=== PATIENT | female | born 1970 ===

== ENCOUNTER 2017-01-01 20:25 | Emergency (ER) | payer OTHER ==
[2017-01-01 20:40] VITALS: BP 121/80; PULSE 69; RESP 18; TEMP 99; O2SAT 100
--- NOTE | 2017-01-01 21:01 | C.PDOC ---
History Of Present Illness 46 year old patient presents to the ED complaining of left knee pain since this afternoon. Patient states she was walking down stairs and missed a step. She twisted her left knee. Her pain is to the medial and posterior aspects of the left knee. Patient reports she is able to ambulate with a limp. Patient denies fall, fever, numbness or weakness. Time Seen by Provider: 01/01/17 20:42 Chief Complaint (Nursing): Lower Extremity Problem/Injury History Per: Patient History/Exam Limitations: no limitations Onset/Duration Of Symptoms: Hrs (this afternoon) Current Symptoms Are (Timing): Still Present Severity: Mild Pain Scale Rating Of: 3 Recent travel outside of the [place]: No - Knee Description Of Injury: Twisted Past Medical History Reviewed: Historical Data, Nursing Documentation, Vital Signs Vital Signs: Last Vital Signs Temp 99.0 F 01/01/17 20:33 Pulse 69 01/01/17 20:33 Resp 18 01/01/17 20:33 BP 121/80 01/01/17 20:33 Pulse Ox 100 01/02/17 05:03 Family History: States: Unknown Family Hx - Social History Hx Tobacco Use: No Hx Alcohol Use: No Hx Substance Use: No - Immunization History Hx Tetanus Toxoid Vaccination: No Hx Influenza Vaccination: No Hx Pneumococcal Vaccination: No Review Of Systems Constitutional: Negative for: Fever Musculoskeletal: Positive for: Other (left knee pain) Neurological: Negative for: Weakness, Numbness Physical Exam - Physical Exam Appears: Non-toxic, No Acute Distress Skin: Warm, Dry Extremity: Normal ROM, No Pedal Edema, No Calf Tenderness, Capillary Refill (<2 seconds), No Deformity, Other (left knee: tenderness to the hamstring tendon, normal dorsalis pedis pulse, normal ROM, mild swelling to the medial aspect; no calf tenderness, no ankle pain or swelling) Neurological/Psych: Oriented x3, Normal Motor, Normal Sensation Gait: Other (ambulates with limp) ED Course And Treatment O2 Sat by Pulse Oximetry: 100 (room air) Pulse Ox Interpretation: Normal Progress Note: Plan: Tylenol, Motrin, Knee immobilizer Disposition Counseled Patient/Family Regarding: Diagnosis, Need For Followup, Rx Given - Disposition Referrals: Maira Garcia MD [Staff Provider] - Disposition: HOME/ ROUTINE Disposition Time: 21:57 Condition: STABLE Additional Instructions: Wear knee immobilizer for comfort. Apply cold packs for comfort several times a day. Take ibuprofen every 6 hours for pain if needed. Follow up with orthopedist. Prescriptions: Ibuprofen [Motrin] 600 mg PO TID #30 tab Instructions: Knee Sprain (ED) Forms: General Discharge Instructions - Clinical Impression Clinical Impression: Left knee sprain - PA / LABOR RELATIONS DIRECTOR / Resident Statement MD/DO has reviewed & agrees with the documentation as recorded. - Scribe Statement The provider has reviewed the documentation as recorded by the Scribe Juliana Chery All medical record entries made by the Scribe were at my direction and personally dictated by me. I have reviewed the chart and agree that the record accurately reflects my personal performance of the history, physical exam, medical decision making, and the department course for this patient. I have also personally directed, reviewed, and agree with the discharge instructions and disposition.
== END 2017-01-01 22:01 | disposition home or self-care (01) ==
LOC: C.ER 20:25
DX: S83.92XA Sprain of unspecified site of left knee, initial encounter (principal); X50.1XXA Overexertion from prolonged static or awkward postures, initial encounter; Y92.89 Other specified places as the place of occurrence of the external cause

== ENCOUNTER 2017-12-12 12:41 | Emergency (ER) | payer MEDICAID, OTHER ==
[2017-12-12 13:03] VITALS: BP 118/82; PULSE 76; RESP 16; TEMP 98.2; O2SAT 99
[2017-12-12] MEDS ORDERED: Lidocaine 5% Patch TD STA (13:20)
[2017-12-12] MEDS ORDERED: Lidocaine 5% Patch TD ONE (13:29)
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
== END 2017-12-12 14:39 | disposition home or self-care (01) ==
LOC: C.ER 12:41
DX: T14.8XXA Other injury of unspecified body region, initial encounter (principal); S80.212A Abrasion, left knee, initial encounter; V03.10XA Pedestrian on foot injured in collision with car, pick-up truck or van in traffic accident, initial encounter; Y92.410 Unspecified street and highway as the place of occurrence of the external cause